=== PATIENT | female | born 1950 | race Caucasian/White ===

== ENCOUNTER 2021-08-26 16:58 | Inpatient (IN) | payer MEDICARE, MEDICAID ==
[~2021-08-26] VITALS: Ht 167.6 cm; Wt 45.0 kg
[2021-08-26] MEDS ORDERED: normal saline 1000ML IV soln IVB ONE (17:20)
[2021-08-26] MEDS ORDERED: ondansetron/PF 4mg/2ml inj IV ONE (17:20)
[2021-08-26] MEDS ORDERED: morphine 2 MG/ML inj. syringe IV PRN ×3 (17:20→22:35)
[2021-08-26 17:52] LABS: BASOPHILS % (AUTO) 0.4 % (0-1); EOSINOPHILS % (AUTO) 0.2 % (0-6); HEMATOCRIT 40.3 % (35.0-45.0); HEMOGLOBIN 13.7 g/dl (12.0-16.0); LYMPHOCYTES # (AUTO) 1.6 X10'3 (1.1-4.8); LYMPHOCYTES % (AUTO) 23.3 % (21-51); MEAN CORPUSCULAR HEMOGLOBIN 32.5 PG (27.0-31.0); MEAN CORPUSCULAR HGB CONC 34.1 g/dL (33.0-36.5); MEAN CORPUSCULAR VOLUME 95.4 FL (78-98); MEAN PLATELET VOLUME 7.5 FL (7.4-10.4); MONOCYTES # (AUTO) 0.6 X10'3 (0-0.9); MONOCYTES % (AUTO) 8.4 % (2-12); NEUTROPHILS # (AUTO) 4.7 X10'3 (1.8-7.7); NEUTROPHILS % (AUTO) 67.7 % (42-75); PLATELET COUNT 198 X10'3 (140-440); RED BLOOD COUNT 4.22 X10'6 (4.20-5.60); RED CELL DISTRIBUTION WIDTH 14.3 % (11.5-14.5); WHITE BLOOD COUNT 6.9 X10'3 (4.5-11.0)
[2021-08-26 18:04] LABS: APTT 26 SECONDS (22-32)
[2021-08-26 18:05] LABS: ALANINE AMINOTRANSFERASE 12 U/L (12-78); ALBUMIN 3.1 G/DL (3.4-5.0); ALBUMIN/GLOBULIN RATIO 0.8 (1.1-1.5); ALKALINE PHOSPHATASE 80 IU/L (46-116); ANION GAP 13 (8-16); ASPARTATE AMINO TRANSFERASE 24 U/L (10-37); BILIRUBIN,TOTAL 0.4 MG/DL (0.1-1.0); BLOOD UREA NITROGEN 30 MG/DL (7-18); BUN/CREATININE RATIO 23.3 (6.6-38.0); CALCIUM 8.9 MG/DL (8.5-10.1); CHLORIDE 102 MMOL/L (99-107); CREATININE 1.29 MG/DL (0.40-0.90); GLUCOSE 89 MG/DL (70-104); LIPASE 54 U/L (73-393); MAGNESIUM 1.7 MG/DL (1.5-2.4); POTASSIUM 3.1 MMOL/L (3.5-5.1); SODIUM 142 MMOL/L (135-145); TOTAL CARBON DIOXIDE 26.8 MMOL/L (24-32); TOTAL PROTEIN 6.9 G/DL (6.4-8.2); eGFR 41 ML/MIN
[2021-08-26 19:50] LABS: CLARITY,URINE CLOUDY (Clear); COLOR,URINE YELLOW (Yellow); GLUCOSE, URINE 100 mg/dl (Neg); KETONES,URINE TRACE mg/dl (Neg); LEUKOCYTE ESTERASE ,URINE NEGATIVE (Neg); NITRITES, URINE NEGATIVE (Neg); OCCULT BLOOD,URINE SMALL (Neg); PH,URINE 5.5 (4.8-8.0); PROTEIN,URINE 100 mg/dl (Neg)
[2021-08-26 19:56] LABS: UA COLLECTION TYPE NON-SPECIFIED
[2021-08-26 20:02] LABS: SQUAMOUS EPITHELIAL CELL,UR FEW /LPF (FEW)
[2021-08-26 20:06] LABS: FINE GRANULAR CAST 0-3 /LPF (NEGATIVE)
[2021-08-26 20:10] LABS: RBC,URINE 0-2 /HPF (0-2); WBC,URINE 0-4 /HPF (0-4)
[2021-08-26 20:11] LABS: BACTERIA,URINE FEW /HPF (Neg); CAL OXALATE CRYSTALS 4+ /HPF (NEGATIVE)
[2021-08-26] MEDS ORDERED: temazepam 15mg capsule PO PRN (21:00)
[2021-08-26] MEDS ORDERED: magnesium 2GM in 50ml NS 50 ML IV PRN (22:35)
[2021-08-26] MEDS ORDERED: potassium Cl 20 mEq SR tablet PO PRN ×2 (22:35)
[2021-08-26] MEDS ORDERED: ondansetron/PF 4mg/2ml inj IV PRN (22:35)
[2021-08-26] MEDS ORDERED: HYDROcodone/acetaminophen 5mg/325mg tablet PO PRN (22:35)
[2021-08-26] MEDS ORDERED: magnesium Cl slow-release 64mg tablet PO PRN (22:35)
[2021-08-26] MEDS ORDERED: magnesium 4gm in 100ml NS 100 ML IV PRN (22:35)
[2021-08-26] MEDS ORDERED: bisacodyl 10mg suppository rectal RC PRN (22:35)
[2021-08-26] MEDS ORDERED: potassium CL 10mEq/100ml bag 100 ML IV PRN (22:35)
[2021-08-26] MEDS ORDERED: acetaminophen 650mg rectal suppository RC PRN (22:35)
[2021-08-26] MEDS ORDERED: diphenhydrAMINE 50 mg/ml inj IV PRN (22:35)
[2021-08-26] MEDS ORDERED: acetaminophen 325mg tablet PO PRN ×2 (22:35)
[2021-08-26] MEDS ORDERED: magnesium hydroxide 30ml (MOM) UD suspension PO PRN (22:35)
[2021-08-26] MEDS ORDERED: mag hydrox/Alum hydrox/simeth 30ml oral suspension PO PRN (22:35)
[2021-08-26] MEDS ORDERED: ondansetron 4mg rapidly disintigrating tab PO PRN (22:35)
[2021-08-26] MEDS ORDERED: diphenhydrAMINE 25mg capsule PO PRN (22:35)
[2021-08-26 23:15] LABS: URINE AMPHETAMINE SCREEN NEGATIVE (Neg); URINE BARBITUATE SCREEN NEGATIVE (Neg); URINE BENZODIAZEPINES SCREEN NEGATIVE (Neg); URINE CANNABINOID SCREEN POSITIVE (Neg); URINE COCAINE SCREEN NEGATIVE (Neg); URINE METHADONE SCREEN NEGATIVE (Neg); URINE OPIATE SCREEN NEGATIVE (Neg); URINE PHENCYCLIDINE SCREEN NEGATIVE (Neg)
[2021-08-26 23:17] LABS: APTT 27 SECONDS (22-32); HEMOGLOBIN A1C 6.2 % (4.5-6.2)
[2021-08-26] MEDS: dextrose 5%-1/2 normal saline 1,000 ML IV SCH (23:17)
[2021-08-26 23:28] LABS: MAGNESIUM 1.6 MG/DL (1.5-2.4); PHOSPHORUS 3.4 MG/DL (2.3-4.5); POTASSIUM 3.6 MMOL/L (3.5-5.1)
[2021-08-27 01:30] VITALS: BP 147/90
[2021-08-27 06:26] LABS: BASOPHILS % (AUTO) 0.4 % (0-1); EOSINOPHILS # (AUTO) 0.1 X10'3 (0-0.9); EOSINOPHILS % (AUTO) 1.2 % (0-6); HEMATOCRIT 37.1 % (35.0-45.0); HEMOGLOBIN 12.3 g/dl (12.0-16.0); LYMPHOCYTES # (AUTO) 2.2 X10'3 (1.1-4.8); LYMPHOCYTES % (AUTO) 35.1 % (21-51); MEAN CORPUSCULAR HGB CONC 33.2 g/dL (33.0-36.5); MEAN CORPUSCULAR VOLUME 96.3 FL (78-98); MEAN PLATELET VOLUME 7.9 FL (7.4-10.4); MONOCYTES # (AUTO) 0.6 X10'3 (0-0.9); MONOCYTES % (AUTO) 8.7 % (2-12); NEUTROPHILS # (AUTO) 3.5 X10'3 (1.8-7.7); NEUTROPHILS % (AUTO) 54.6 % (42-75); PLATELET COUNT 169 X10'3 (140-440); RED BLOOD COUNT 3.85 X10'6 (4.20-5.60); RED CELL DISTRIBUTION WIDTH 14.2 % (11.5-14.5); WHITE BLOOD COUNT 6.4 X10'3 (4.5-11.0)
--- NOTE | 2021-08-27 07:02 | NUR ---
Patient Report received,questions answered plan of care reviewed with Walker CRAFT
[2021-08-27 07:04] LABS: ALANINE AMINOTRANSFERASE 11 U/L (12-78); ALBUMIN 2.7 G/DL (3.4-5.0); ALKALINE PHOSPHATASE 66 IU/L (46-116); ANION GAP 6 (8-16); ASPARTATE AMINO TRANSFERASE 21 U/L (10-37); BILIRUBIN,TOTAL 0.4 MG/DL (0.1-1.0); BLOOD UREA NITROGEN 26 MG/DL (7-18); BUN/CREATININE RATIO 27.1 (6.6-38.0); CALCIUM 8.3 MG/DL (8.5-10.1); CHLORIDE 106 MMOL/L (99-107); CHOL/HDL RATIO 2.6 (0.00-4.99); CHOLESTEROL 108 MG/DL (0-200); CREATININE 0.96 MG/DL (0.40-0.90); GLUCOSE 88 MG/DL (70-104); HDL CHOLESTEROL 41 MG/DL (35-60); LDL CHOLESTEROL 49 MG/DL (50-100); POTASSIUM 3.6 MMOL/L (3.5-5.1); SODIUM 142 MMOL/L (135-145); TOTAL CARBON DIOXIDE 29.7 MMOL/L (24-32); TOTAL PROTEIN 5.4 G/DL (6.4-8.2); TRIGLYCERIDES 88 MG/DL (20-135); eGFR 58 ML/MIN
[2021-08-27] MEDS ORDERED: pantoprazole 40mg Tablet.DR PO SCH (07:30)
[2021-08-27] MEDS: docusate sod 100mg capsule PO SCH ×3 (07:58→20:09)
[2021-08-27] MEDS: K and/or MAG REPLACEMENT MC SCH ×2 (08:00→19:49)
[2021-08-27] MEDS ORDERED: nicotine 21mg patch - 24 hr TD SCH (08:00)
[2021-08-27] MEDS: heparin, porcine 5000 units/ml vial SQ SCH ×2 (08:03→20:09)
[2021-08-27] MEDS: dextrose 5%-1/2 normal saline 1,000 ML IV SCH ×2 (08:19→23:22)
[2021-08-27] MEDS ORDERED: FLU VACC QS2021-22(6MOS UP)/PF 60 MCG/0.5 ML SYRINGE IM ONE (10:00)
[2021-08-27] MEDS ORDERED: pneumococcal 23-VAL P-sac vacc 25 mcg/0.5ml vial IMVAC ONE (10:00)
[2021-08-27 11:25] VITALS: BP 111/84
[2021-08-27] MEDS ORDERED: NO HOME MEDS (12:41)
[2021-08-27 13:57] VITALS: BP 112/60
--- NOTE | 2021-08-27 15:41 | NUR ---
Noted pt with a low BMI of 16.0 using standing scaled wt of 45 kg (99 lbs). No wt hx in EMR. Pt seen at bedside reports weighing 165 lbs 1 year ago though is unsure why wt loss occurred and reported wt 1 year ago is not scaled. 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 Pt reports being homeless requires her to walk a lot however pt eats well and denies any change in access to food. Pt visibly malnourished with visible severe fat and muscle wasting evident. Pt meets criteria for malnutrition. Pt presented with c/o abdominal pain and emesis for [address] report of abdomen/pelvis states "Evaluation of the GI tract is limited by lack of distension and retained stool. Moderate gastric distention may be due to recent ingestion, gastric outlet obstruction, or gastroparesis. No other evidence of bowel obstruction. ". Pt with hypokalemia and diarrhea on admit. Pt currently NPO though reports being "starving". Recommend diet advancement to low fiber as medically indicated if pt with gastroparesis. Pt denies food allergies, difficulty chewing/swallowing, or food preferences at this time. LBM 2/4, documented with diarrhea though pt receiving routine bowel care per EMR. No appropriate nutrition intervention at this time in view of NPO status. Pt provided with RD contact information and encouraged to reach out if needed. Will continue to follow closely. Recommendations: 1) Advance to low fiber diet if pt with gastroparesis; otherwise regular diet 2) Bowel care PRN 3) Weekly scaled weights Addendum: 08/27/21 at [address] Amended: Links added.
[2021-08-27] MEDS ORDERED: mineral oil 133ml enema RC SCH (16:00)
--- NOTE | 2021-08-27 18:11 | NUR ---
Patient Report given ,questions answered plan of care reviewed with Walker CRAFT
[2021-08-27 20:00] VITALS: BP 122/70
[2021-08-28] VITALS: BP 120/72
[2021-08-28] MEDS: dextrose 5%-1/2 normal saline 1,000 ML IV SCH (04:35)
--- NOTE | 2021-08-28 06:03 | NUR ---
[id number] walked in pts room and pt stated she has to leave now. pt stated she was tired. attempted to get pt to stay and get the treatment she needs but pt declined and was adamant she was leaving. iv dcd. pt signed ama paperwork . took belongings and left . dr jones was notified. charge nurse sachi card .
== END 2021-08-28 05:55 | disposition left against medical advice (07) | DRG 380 ==
LOC: ER 16:58 → ED HOLD 22:39 → SUR 3N 23:55
PROVIDERS: ADMIT Family Medicine; ATTEND Family Medicine
PROC: 3E0234Z Introduction of Serum, Toxoid and Vaccine into Muscle, Percutaneous Approach (ICD-10-PCS; principal; 2021-08-27)
PROC: 3E02340 Introduction of Influenza Vaccine into Muscle, Percutaneous Approach (ICD-10-PCS; 2021-08-27)
DX: K31.1 Adult hypertrophic pyloric stenosis (principal); E43 Unspecified severe protein-calorie malnutrition; N17.9 Acute kidney failure, unspecified; Z68.1 Body mass index [BMI] 19.9 or less, adult; K31.84 Gastroparesis; Z20.822 Contact with and (suspected) exposure to COVID-19; E86.0 Dehydration; E87.6 Hypokalemia; F12.10 Cannabis abuse, uncomplicated; I10 Essential (primary) hypertension; K59.00 Constipation, unspecified; B19.20 Unspecified viral hepatitis C without hepatic coma; R19.7 Diarrhea, unspecified; R82.4 Acetonuria; F17.200 Nicotine dependence, unspecified, uncomplicated; Z53.29 Procedure and treatment not carried out because of patient's decision for other reasons; Z59.00 Homelessness unspecified; Z90.710 Acquired absence of both cervix and uterus; Z23 Encounter for immunization; Z71.51 Drug abuse counseling and surveillance of drug abuser; Z71.6 Tobacco abuse counseling
CPT/HCPCS: 36415; 71045; 74176; 80053; 80061; 80305; 81001; 83036; 83690; 83735; 83880; 84100; 84132; 84443; 84484; 85025; 85610; 85730; 87081; 87635; 90732; 99285; C9803; G0378; J1644; J2405; J7030; J7042

== ENCOUNTER 2023-01-09 19:35 | Emergency (ER) | payer BC, MEDICARE ==
[~2023-01-09] VITALS: Ht 165.1 cm; Wt 54.5 kg
[~2023-01-09 19:35] MED LIST: NO HOME MEDS
[2023-01-09 20:29] LABS: ALANINE AMINOTRANSFERASE 14 U/L (12-78); ALBUMIN 3.9 G/DL (3.4-5.0); ALBUMIN/GLOBULIN RATIO 1.1 (1.1-1.5); ALKALINE PHOSPHATASE 98 IU/L (46-116); ANION GAP 20 (8-16); ASPARTATE AMINO TRANSFERASE 49 U/L (10-37); BILIRUBIN,TOTAL 1.4 MG/DL (0.1-1.0); BLOOD UREA NITROGEN 103 MG/DL (7-18); BUN/CREATININE RATIO 14.2 (10.0-20.0); CHLORIDE 94 MMOL/L (99-107); CREATININE 7.23 MG/DL (0.40-0.90); GLUCOSE 189 MG/DL (70-104); POTASSIUM 3.4 MMOL/L (3.5-5.1); SODIUM 136 MMOL/L (135-145); TOTAL CARBON DIOXIDE 21.9 MMOL/L (24-32); TOTAL PROTEIN 7.5 G/DL (6.4-8.2); eGFR 6 ML/MIN
[2023-01-09] MEDS ORDERED: normal saline 1000ml 1,000 ML IV ONE (21:10)
[2023-01-09 21:14] LABS: BASOPHILS % (AUTO) 0.3 % (0-1); EOSINOPHILS % (AUTO) 0 % (0-6); HEMATOCRIT 40.5 % (35.0-45.0); HEMOGLOBIN 13.6 g/dl (12.0-16.0); LYMPHOCYTES % (AUTO) 7.8 % (21-51); MEAN CORPUSCULAR HEMOGLOBIN 32.1 PG (27.0-31.0); MEAN CORPUSCULAR HGB CONC 33.5 g/dL (33.0-36.5); MEAN CORPUSCULAR VOLUME 95.8 FL (78-98); MEAN PLATELET VOLUME 9.6 FL (7.4-10.4); MONOCYTES # (AUTO) 1.3 X10'3 (0-0.9); MONOCYTES % (AUTO) 9.9 % (2-12); NEUTROPHILS # (AUTO) 10.5 X10'3 (1.8-7.7); PLATELET COUNT 52 X10'3 (140-440); RED BLOOD COUNT 4.23 X10'6 (4.20-5.60); RED CELL DISTRIBUTION WIDTH 15.2 % (11.5-14.5); WHITE BLOOD COUNT 12.9 X10'3 (4.5-11.0)
[2023-01-09 21:26] LABS: CREATINE KINASE 594 U/L (26-192)
[2023-01-09] MEDS: niCARDipine-NS 40mg/200ml IVPB 200 ML IV SCH (22:27)
[2023-01-09 23:43] LABS: ABG BASE EXCESS -6.8 mmol/L (-2.0-2.0); ABG HCO3 16.9 mmol/L (22.0-26.0); ABG OXYGEN SATURATION 96.6 % (94-97); ABG PCO2 (T) 28.9 mmHg (32.0-45.0); ABG PO2 (T) 96.8 mmHg (75.0-100.0); ALLEN'S TEST POSITIVE; FMetHb 0.3 % (0.0-1.5); FO2Hb 95.3 % (94-97); TOTAL HEMOGLOBIN 12.3 G/dl (12.0-16.0)
[2023-01-10 00:48] LABS: CLARITY,URINE SLIGHTLY CLOUDY (Clear); COLOR,URINE YELLOW (Yellow); GLUCOSE, URINE NEGATIVE (Neg); KETONES,URINE NEGATIVE (Neg); LEUKOCYTE ESTERASE ,URINE NEGATIVE (Neg); NITRITES, URINE NEGATIVE (Neg); OCCULT BLOOD,URINE MODERATE (Neg); PROTEIN,URINE >=300 mg/dl (Neg); UROBILINOGEN,URINE 0.2 E.U/dL (0.2-1.0)
[2023-01-10 00:49] LABS: UA COLLECTION TYPE FOLEY CATH
[2023-01-10 00:56] LABS: WBC,URINE 0-4 /HPF (0-4)
[2023-01-10 00:57] LABS: BACTERIA,URINE FEW /HPF (Neg); RBC,URINE 50-100 /HPF (0-2); SQUAMOUS EPITHELIAL CELL,UR FEW /LPF (FEW)
[2023-01-10 00:58] LABS: HYALINE CASTS 0-3 /LPF (NEGATIVE)
[2023-01-10 00:59] LABS: FINE GRANULAR CAST 0-3 /LPF (NEGATIVE)
[2023-01-10] MEDS: niCARDipine-NS 40mg/200ml IVPB 200 ML IV SCH (06:15)
--- NOTE | 2023-01-10 06:26 | NUR ---
gloria (room [facility]) [phone].
--- NOTE | 2023-01-10 06:27 | NUR ---
PATIENT ASLEEP, NO SIGNS OF DISTRESS NOTED, ROOM MATE AT BEDSIDE, ALL SAFETY MEASURES IN PLACE.
[2023-01-10] MEDS ORDERED: NIFEdipine XL 30mg tablet PO ONE (08:00)
[2023-01-10] MEDS ORDERED: normal saline 1000ML IV soln IVB ONE ×2 (08:00→11:40)
[2023-01-10 09:00] LABS: ALBUMIN 3.3 G/DL (3.4-5.0); ANION GAP 15 (8-16); BLOOD UREA NITROGEN 107 MG/DL (7-18); BUN/CREATININE RATIO 16.1 (10.0-20.0); CALCIUM 8.3 MG/DL (8.5-10.1); CHLORIDE 101 MMOL/L (99-107); CREATININE 6.66 MG/DL (0.40-0.90); GLUCOSE 108 MG/DL (70-104); POTASSIUM 3.2 MMOL/L (3.5-5.1); SODIUM 137 MMOL/L (135-145); TOTAL CARBON DIOXIDE 20.6 MMOL/L (24-32); eGFR 6 ML/MIN
--- NOTE | 2023-01-10 17:19 | NUR ---
PATIENT PLACED ONTO HOSPITAL BED AT THIS TIME FOR COMFORT.
[2023-01-10 17:38] VITALS: BP 134/79
--- NOTE | 2023-01-10 17:46 | NUR ---
Friend at bedside aware patient has been accepted to a [facility] in [place].
--- NOTE | 2023-01-10 18:05 | NUR ---
Report called to [facility] at [phone] ext [phone] to Lavell RN. Room mate Maria Luisa at bedside and aware of transfer.
== END 2023-01-10 18:58 | disposition still patient (30) ==
LOC: ER 19:36
DX: I16.1 Hypertensive emergency (principal); Z20.822 Contact with and (suspected) exposure to COVID-19; G93.41 Metabolic encephalopathy; E86.0 Dehydration; Z90.710 Acquired absence of both cervix and uterus; Z87.891 Personal history of nicotine dependence
CPT/HCPCS: 36415; 36600; 70450; 71045; 80048; 80053; 81001; 82550; 82803; 82948; 83880; 84484; 85018; 85025; 87811; 96360; 96361; 99285; J3490; J7030